=== PATIENT | male | born 1965 | race Caucasian/White ===

== ENCOUNTER 2017-01-28 14:01 | Emergency (ER) | payer MEDICAID, OTHER ==
[~2017-01-28] VITALS: Ht 177.8 cm; Wt 90.7 kg
[2017-01-28 14:01] VITALS: BP 136/98
== END 2017-01-28 14:48 | disposition home or self-care (01) ==
LOC: EDUNIT# 14:01 → ER 14:03
DX: M54.41 Lumbago with sciatica, right side (principal); Z90.89 Acquired absence of other organs; V89.2XXA Person injured in unspecified motor-vehicle accident, traffic, initial encounter; Y93.89 Activity, other specified; Y92.488 Other paved roadways as the place of occurrence of the external cause; Y99.8 Other external cause status
CPT/HCPCS: 99283; A4606; Z7610

== ENCOUNTER 2017-02-08 23:32 | Emergency (ER) | payer OTHER ==
[~2017-02-08] VITALS: Ht 180.3 cm; Wt 93.0 kg
[2017-02-09 00:08] VITALS: BP 155/96
== END 2017-02-09 00:32 | disposition home or self-care (01) ==
LOC: ER 23:32
DX: M54.5 Low back pain (principal); G89.29 Other chronic pain; Z90.89 Acquired absence of other organs
CPT/HCPCS: 99283; A4606; Z7610

== ENCOUNTER 2024-02-15 12:09 | Inpatient (IN) | payer OTHER ==
[~2024-02-15] VITALS: Ht 180.3 cm; Wt 98.0 kg
[2024-02-15 12:44] LABS: BASOPHILS # (AUTO) 0.1 K/uL (0.0-0.2); BASOPHILS % (AUTO) 1.1 % (0.0-2.0); EOSINOPHILS # (AUTO) 0.1 K/uL (0.0-0.7); EOSINOPHILS % (AUTO) 1.8 % (0.0-6.0); HEMATOCRIT 48 % (39-51); HEMOGLOBIN 16.4 g/dL (13.5-17.5); LYMPHOCYTES # (AUTO) 1.7 K/uL (0.8-4.8); LYMPHOCYTES % (AUTO) 26.1 % (20.0-44.0); MEAN CORPUSCULAR HEMOGLOBIN 35 PG (26.0-33.0); MEAN CORPUSCULAR HGB CONC 34 g/dl (31.0-36.0); MEAN CORPUSCULAR VOLUME 103 fL (80-96); MONOCYTES # (AUTO) 0.7 K/uL (0.1-1.30); MONOCYTES % (AUTO) 10.2 % (2.0-12.0); NEUTROPHILS % (AUTO) 60.8 % (43.0-81.0); PLATELET COUNT (AUTO) 283 K/uL (150-450); RED BLOOD CELL COUNT(AUTO) 4.65 MIL/uL (4.5-6.0); WHITE BLOOD COUNT (AUTO) 6.5 K/uL (4.3-11.0)
[2024-02-15 12:57] LABS: CALCIUM, SERUM 8.2 mg/dL (8.5-10.1); CARBON DIOXIDE 28 mmol/L (21-32); CHLORIDE 103 mmol/L (98-107); CREATININE 0.9 mg/dL (0.6-1.3); GLUCOSE 136 mg/dL (74-106); POTASSIUM 3.8 mmol/L (3.5-5.1); SODIUM SERUM 141 mmol/L (136-145); UREA NITROGEN, BLOOD 9 mg/dL (7-18)
[2024-02-15 13:03] LABS: ALANINE AMINOTRANSFERASE 96 U/L (12-78); ALBUMIN 3.5 g/dL (3.4-5.0); ALKALINE PHOSPHATASE 65 U/L (46-116); ASPARTATE AMINOTRANSFERASE 44 U/L (15-37); BILIRUBIN,DIRECT 0.2 mg/dL (0.0-0.2); BILIRUBIN,TOTAL 0.8 mg/dL (0.2-1.0); LIPASE 58 U/L (16-77); TOTAL PROTEIN, SERUM 7.2 g/dL (6.4-8.2)
[2024-02-15 13:06] LABS: INR 0.97 (0.91-1.10); PROTHROMBIN TIME 10.3 SECS (9.2-11.1)
[2024-02-15] MEDS ORDERED: IV NS 0.9% 250 ML IV ONE (13:08)
[2024-02-15] MEDS ORDERED: IOHEXOL-350 100 ML VIAL IV ONE (13:08)
[2024-02-15] MEDS ORDERED: CT SWABBABLE VALVE TRANS SET 1 EA INFUS.SET MC ONE (13:08)
[2024-02-15 13:46] LABS: ALCOHOL, BLOOD < 3 mg/dL (0-10)
[2024-02-15 13:51] LABS: ACETAMINOPHEN <10 ug/ml (10-30); SALICYLATE 0.5 mg/dL (2.8-20.0)
[2024-02-15 13:57] LABS: APPEARANCE,URINE CLEAR (CLEAR); BILIRUBIN,URINE NEGATIVE (NEGATIVE); BLOOD, URINE NEGATIVE Ery/uL (NEGATIVE); COLOR,URINE YELLOW (YELLOW); KETONES,URINE TRACE mg/dL (NEGATIVE); LEUKOCYTE ESTERASE ,URINE NEGATIVE (NEGATIVE); NITRITE, URINE NEGATIVE (NEGATIVE); PROTEIN,URINE NEGATIVE (NEGATIVE); UGLUCOSE NEGATIVE (NEGATIVE); UROBILINOGEN,URINE 0.2 EU/dL (0.2)
[2024-02-15] MEDS ORDERED: ASPIRIN EC 325 MG TABLET.DR PO ONE (13:57)
[2024-02-15] MEDS: ASPIRIN 325 MG TABLET PO ONE (13:59)
[2024-02-15 14:11] LABS: ADD URINE CULTURE NO; BACTERIA,URINE None seen /HPF (None Seen); RBC,URINE 0-2 /HPF (0-2); TRICHOMONAS,URINE None Seen /HPF (None Seen); WBC,URINE 0-2 /HPF (0-3); YEAST,URINE None Seen /HPF (None Seen)
[2024-02-15 14:12] LABS: SERUM AMMONIA 13 umol/L (11-32)
[2024-02-15 14:12] LABS: URIC ACID CRYSTALS,URINE Few /HPF (None Seen)
[2024-02-15] MEDS ORDERED: ACETAMINOPHEN 325 MG TABLET PO PRN (15:00)
[2024-02-15] MEDS ORDERED: MAG HYDROX/AL HYDROX/SIMETH 30 ML UDC PO PRN (15:00)
[2024-02-15] MEDS ORDERED: ONDANSETRON HCL/PF 4 MG/2 ML VIAL IVP PRN (15:00)
[2024-02-15] MEDS ORDERED: MAGNESIUM HYDROXIDE 30 ML UDC PO PRN (15:00)
[2024-02-15 15:31] LABS: CHOLESTEROL 226 mg/dL (<200); HDL CHOLESTEROL 57 mg/dL (40-60); LDL 136 mg/dL (0-99); TRIGLYCERIDES 155 mg/dL (30-150)
[2024-02-15 16:00] VITALS: BP 160/97; TEMP 98.4; O2SAT 94
[2024-02-15 16:15] VITALS: BP 155/91; TEMP 98.4; O2SAT 95
[2024-02-15 20:00] VITALS: BP 148/94; TEMP 98.9; O2SAT 96
[2024-02-15 20:30] LABS: AMPHETAMINE, URINE NEGATIVE (NEGATIVE); BARBITURATE, URINE NEGATIVE (NEGATIVE); BENZODIAZEPINE, URINE NEGATIVE (NEGATIVE); CANNABINOID, URINE POSITIVE (NEGATIVE); COCCAINE, URINE POSITIVE (NEGATIVE); OPIATE, URINE NEGATIVE (NEGATIVE); PHENCYCLIDINE SCREEN,URINE NEGATIVE (NEGATIVE)
[2024-02-16] VITALS (9 sets, daily range): BP systolic 135–144; BP diastolic 84–97; TEMP 97.9–98.9; O2SAT 95–97
[2024-02-16 07:49] LABS: BASOPHILS # (AUTO) 0.1 K/uL (0.0-0.2); BASOPHILS % (AUTO) 0.8 % (0.0-2.0); EOSINOPHILS # (AUTO) 0.1 K/uL (0.0-0.7); EOSINOPHILS % (AUTO) 1.9 % (0.0-6.0); HEMATOCRIT 48 % (39-51); HEMOGLOBIN 16.6 g/dL (13.5-17.5); LYMPHOCYTES # (AUTO) 1.2 K/uL (0.8-4.8); LYMPHOCYTES % (AUTO) 16.3 % (20.0-44.0); MEAN CORPUSCULAR HEMOGLOBIN 36 PG (26.0-33.0); MEAN CORPUSCULAR HGB CONC 35 g/dl (31.0-36.0); MEAN CORPUSCULAR VOLUME 103 fL (80-96); MONOCYTES # (AUTO) 0.8 K/uL (0.1-1.30); MONOCYTES % (AUTO) 11.7 % (2.0-12.0); NEUTROPHILS # (AUTO) 4.9 K/uL (1.8-8.9); NEUTROPHILS % (AUTO) 69.3 % (43.0-81.0); PLATELET COUNT (AUTO) 270 K/uL (150-450); RED BLOOD CELL COUNT(AUTO) 4.61 MIL/uL (4.5-6.0); RED CELL DISTRIBUTION WIDTH 13.6 % (11.5-15.0); WHITE BLOOD COUNT (AUTO) 7.1 K/uL (4.3-11.0)
[2024-02-16] MEDS: PANTOPRAZOLE 40 MG TABLET.DR PO SCH (07:51)
[2024-02-16 08:07] LABS: CALCIUM, SERUM 8.5 mg/dL (8.5-10.1); CREATININE 0.8 mg/dL (0.6-1.3); MAGNESIUM 2.2 mg/dL (1.8-2.4); PHOSPHORUS 3.3 mg/dL (2.5-4.9); POTASSIUM 3.5 mmol/L (3.5-5.1)
[2024-02-16] MEDS ORDERED: ASPIRIN 81 MG TAB.CHEW PO SCH (09:30)
[2024-02-16 09:56] LABS: THYROID STIMULATING HORMONE 3.93 uIU/mL (0.358-3.74)
[2024-02-16] MEDS: CLOPIDOGREL BISULFATE 75 MG TABLET PO SCH (10:03)
[2024-02-16] MEDS: ASPIRIN EC 81 MG TABLET.DR PO SCH (10:03)
[2024-02-16] MEDS ORDERED: ATORVASTATIN 40 MG TABLET PO SCH (22:00)
[2024-02-16] MEDS: ATORVASTATIN 40 MG TABLET PO SCH (22:05)
[2024-02-17] VITALS: BP 148/95; TEMP 98.2; O2SAT 96
[2024-02-17 04:00] VITALS: BP 143/91; TEMP 98; O2SAT 97
[2024-02-17 06:45] LABS: BASOPHILS # (AUTO) 0.1 K/uL (0.0-0.2); EOSINOPHILS # (AUTO) 0.1 K/uL (0.0-0.7); EOSINOPHILS % (AUTO) 1.4 % (0.0-6.0); HEMATOCRIT 47 % (39-51); HEMOGLOBIN 16.9 g/dL (13.5-17.5); LYMPHOCYTES # (AUTO) 1.4 K/uL (0.8-4.8); MEAN CORPUSCULAR HEMOGLOBIN 37 PG (26.0-33.0); MEAN CORPUSCULAR HGB CONC 36 g/dl (31.0-36.0); MEAN CORPUSCULAR VOLUME 104 fL (80-96); MONOCYTES % (AUTO) 11.9 % (2.0-12.0); NEUTROPHILS % (AUTO) 69.7 % (43.0-81.0); PLATELET COUNT (AUTO) 261 K/uL (150-450); RED BLOOD CELL COUNT(AUTO) 4.54 MIL/uL (4.5-6.0); RED CELL DISTRIBUTION WIDTH 13.6 % (11.5-15.0); WHITE BLOOD COUNT (AUTO) 8.6 K/uL (4.3-11.0)
[2024-02-17 07:07] LABS: ALBUMIN 3.2 g/dL (3.4-5.0); BILIRUBIN,TOTAL 1.3 mg/dL (0.2-1.0); CALCIUM, SERUM 8.5 mg/dL (8.5-10.1); CREATININE 1.1 mg/dL (0.6-1.3); MAGNESIUM 2.4 mg/dL (1.8-2.4); PHOSPHORUS 4.1 mg/dL (2.5-4.9); POTASSIUM 3.8 mmol/L (3.5-5.1); TOTAL PROTEIN, SERUM 6.9 g/dL (6.4-8.2)
[2024-02-17 08:00] VITALS: BP 147/93; TEMP 98.3; O2SAT 96
[2024-02-17] MEDS ORDERED: PROPOFOL 200 MG/20 ML VIAL IV ONE ×2 (14:21→14:40)
[2024-02-17] MEDS: FOLIC ACID 1 MG TABLET PO SCH (14:44)
[2024-02-17] MEDS: THIAMINE HCL 100 MG TABLET PO SCH (14:44)
[2024-02-17 16:00] VITALS: BP 136/86; TEMP 97.9; O2SAT 96
[2024-02-17 20:00] VITALS: BP 140/83; TEMP 98.2; O2SAT 97
[2024-02-18] VITALS: BP 133/92; TEMP 98.1; O2SAT 96
[2024-02-18 04:00] VITALS: BP 143/79; TEMP 98.3; O2SAT 96
[2024-02-18 07:25] LABS: BASOPHILS # (AUTO) 0.1 K/uL (0.0-0.2); BASOPHILS % (AUTO) 0.8 % (0.0-2.0); EOSINOPHILS # (AUTO) 0.2 K/uL (0.0-0.7); EOSINOPHILS % (AUTO) 2.4 % (0.0-6.0); HEMATOCRIT 46 % (39-51); HEMOGLOBIN 15.8 g/dL (13.5-17.5); LYMPHOCYTES # (AUTO) 1.5 K/uL (0.8-4.8); LYMPHOCYTES % (AUTO) 18.9 % (20.0-44.0); MEAN CORPUSCULAR HEMOGLOBIN 36 PG (26.0-33.0); MEAN CORPUSCULAR HGB CONC 34 g/dl (31.0-36.0); MEAN CORPUSCULAR VOLUME 105 fL (80-96); MONOCYTES % (AUTO) 12.4 % (2.0-12.0); NEUTROPHILS # (AUTO) 5.2 K/uL (1.8-8.9); NEUTROPHILS % (AUTO) 65.5 % (43.0-81.0); PLATELET COUNT (AUTO) 253 K/uL (150-450); RED BLOOD CELL COUNT(AUTO) 4.42 MIL/uL (4.5-6.0); RED CELL DISTRIBUTION WIDTH 13.6 % (11.5-15.0); WHITE BLOOD COUNT (AUTO) 7.9 K/uL (4.3-11.0)
[2024-02-18 08:00] VITALS: BP 135/82; TEMP 98; O2SAT 98
[2024-02-18 08:39] LABS: MAGNESIUM 2.6 mg/dL (1.8-2.4); PHOSPHORUS 4.5 mg/dL (2.5-4.9); POTASSIUM 3.7 mmol/L (3.5-5.1)
[2024-02-18 12:00] VITALS: BP 131/88; TEMP 98.1; O2SAT 95
[2024-02-18] MEDS ORDERED: ASPI-1420 PO (12:00)
[2024-02-18] MEDS ORDERED: CLOP75TA15 PO (12:00)
[2024-02-18] MEDS ORDERED: ATOR40TA PO (12:00)
== END 2024-02-18 15:38 | disposition home or self-care (01) | DRG 45 ==
LOC: ER 12:15 → TELE1 14:50 → ICU 02-17 11:25 → TELE1 02-17 14:04
PROVIDERS: ATTEND Nurse Practitioner Family
PROC: B246ZZ4 Ultrasonography of Right and Left Heart, Transesophageal (ICD-10-PCS; principal; 2024-02-17)
DX: I63.50 Cerebral infarction due to unspecified occlusion or stenosis of unspecified cerebral artery (principal); Q21.20 Atrioventricular septal defect, unspecified as to partial or complete; J45.909 Unspecified asthma, uncomplicated; F12.90 Cannabis use, unspecified, uncomplicated; F14.90 Cocaine use, unspecified, uncomplicated; F10.10 Alcohol abuse, uncomplicated; Y90.0 Blood alcohol level of less than 20 mg/100 ml; Z90.49 Acquired absence of other specified parts of digestive tract; E04.1 Nontoxic single thyroid nodule; R29.702 NIHSS score 2; Z79.82 Long term (current) use of aspirin; Z79.02 Long term (current) use of antithrombotics/antiplatelets; Z79.899 Other long term (current) drug therapy
CPT/HCPCS: 36415; 70450-TC; 70496-TC; 70498-TC; 70551-TC; 71045-TC; 80048-TC; 80053-TC; 80061-TC; 80076-TC; 81001; 82140-TC; 82962-TC; 83690-TC; 83735-TC; 84100-TC; 84443-TC; 84484-TC; 85025-TC; 85730-TC; 86850-TC; 87086-TC; 92507-TC; 92521; 93307-TC; 93312-TC; 93970-TC; 97110-TC; 97112-TC; 97116-TC; 97530-TC; 97535-TC; G0378; G0480; J2704; J3490; J7040; J7050; Q9967